=== PATIENT | female | born 1955 | race Caucasian/White ===

== ENCOUNTER 2021-04-17 15:59 | Emergency (ER) | payer MEDICARE ==
[2021-04-17] MEDS ORDERED: INSULIN N (N100 U/ML SQ (16:09)
[2021-04-17 16:47] LABS: BASO # 0.04 (0.02-0.10); EOS # 0.14 (0.04-0.40); EOS % 1.3 % (1.0-5.0); HEMOGLOBIN 13.3 g/dL (12.5-16.0); LYMPH# 2.41 (1.50-4.00); MEAN CELL VOLUME 88 fl (78-100); MEAN CORPUSCULAR HEMOGLOBIN 32 pg (27-31); MEAN CORPUSCULAR HGB CONC 36 g/dL (33-37); MEAN PLATELET VOLUME 10.8 fl (7.4-10.4); MONO # 0.58 (0.20-0.80); NEU # 7.39 (1.40-6.50); PLATELET COUNT 285 K/mm3 (130-400); RED BLOOD COUNT 4.22 M/mm3 (4.10-5.30); RED CELL DISTRIBUTION WIDTH 13.2 % (11.5-14.5); WHITE BLOOD COUNT 10.6 K/mm3 (4.8-10.8)
[2021-04-17 17:00] LABS: CALCIUM 10.1 mg/dL (8.3-10.5)
[2021-04-17 17:01] LABS: TOTAL PROTEIN 8.7 g/dL (6.2-8.1)
[2021-04-17 17:03] LABS: TOTAL BILIRUBIN 0.3 mg/dL (0.2-1.2)
[2021-04-17 17:14] LABS: POTASSIUM 5.9 mmol/L (3.5-5.1)
[2021-04-17 20:20] LABS: ALBUMIN 3.7 g/dL (3.4-4.8)
[2021-04-17 20:21] LABS: CALCIUM 9.6 mg/dL (8.3-10.5)
[2021-04-17 20:22] LABS: TOTAL PROTEIN 7.3 g/dL (6.2-8.1)
[2021-04-17 20:24] LABS: TOTAL BILIRUBIN 0.2 mg/dL (0.2-1.2)
[2021-04-17 20:29] LABS: POTASSIUM 5.8 mmol/L (3.5-5.1)
[2021-04-17 21:00] VITALS: BP 159/85
== END 2021-04-17 21:00 | disposition home or self-care (01) ==
LOC: ED 15:59
PROVIDERS: Family Medicine; Nurse Practitioner
DX: E87.5 Hyperkalemia (principal); N17.9 Acute kidney failure, unspecified
CPT/HCPCS: J7030